=== PATIENT | male | born 1975 | race Caucasian/White ===

== ENCOUNTER → 2021-09-11 | Outpatient (CLI) | payer BC, SELFPAY ==
[2021-09-11 17:51] LABS: Absolute Neutrophil Count 4.5 X10^3/uL (2.0-7.7); Basophil# 0.07 X10^3/uL; Basophil% 0.9 % (0-1); Eosinophil# 0.17 X10^3/uL; Eosinophils% 2.3 % (0-5); Hematocrit 49.1 % (40-54); Hemoglobin 16.8 g/dL (13.0-16.5); Mean Corp Hgb Conc 34.2 g/dL (32-36); Mean Corpuscular Hgb 30.3 pg (27.0-32.0); Mean Corpuscular Volume 88.6 fL (80-94); Mean Platelet Vol. 9.6 fl (6.2-12.0); Monocyte# 0.69 X10^3/uL; Monocyte% 9.3 % (0-10); NRBC Flagged by Analyzer 0 % (0-5); Neutrophil # 4.46 X10^3/uL (2.7-7.7); Neutrophil % 60.4 % (47-70); Platelet Count 241 K/mm3 (150-450); RBC Distribution Width CV 12.3 % (11.6-14.6); RBC Distribution Width SD 39.8 fl (35.1-43.9); Red Blood Count 5.54 M/mm3 (4.6-6.2); White Blood Count 7.4 K/mm3 (4.4-11.0)
[2021-09-11 18:13] LABS: Vitamin B12 505 pg/mL (211-911); Vitamin D,25 Hydroxy 39.7 ng/mL
[2021-09-11 18:14] LABS: AST(SGOT) 21 U/L (15-37); Alanine Aminotransfer ALT/SGPT 33 U/L (16-61); Albumin, Serum 3.7 g/dL (3.2-5.0); Alkaline Phosphatase 65 U/L (45-117); Anion Gap 8 (5-15); BUN 18 mg/dL (7-18); BUN/Creat Ratio 14.8 RATIO (10-20); Calcium,Total 9.2 mg/dL (8.5-10.1); Chloride 104 mmol/L (98-107); Cholesterol 191 mg/dL (200); Creatinine, Serum 1.22 mg/dL (0.70-1.30); EST Glomerular Filtration Rate 68 mL/min (>60); Est Glom Filt Rate - Afr Amer 82 mL/min (>60); Estradiol 24.8 pg/mL; Globulin 3.7 g/dL (2.2-4.2); Glucose 88 mg/dL (74-106); High Density Lipoprotein 62 mg/dL; Protein, Total 7.4 g/dL (6.4-8.2); Sodium Level 138 mmol/L (136-145); Triglycerides 153 mg/dL; Very Low Density Lipoprotein 31 mg/dL (5-40)
[2021-09-11 18:20] LABS: Hemoglobin A1c 5.2 % (3.8-5.6)
[2021-09-17 10:09] LABS: Testosterone, % Free 2.99 % (1.50-4.20); Testosterone, Free 25.92 ng/dL (5.00-21.00)
[2021-09-17 10:54] LABS: Testosterone, Total 867 ng/dL (264-916)
== END | disposition home or self-care (01) ==
DX: R53.83 Other fatigue (principal); E66.3 Overweight; R79.89 Other specified abnormal findings of blood chemistry; Z79.890 Hormone replacement therapy; R68.82 Decreased libido; R68.89 Other general symptoms and signs
CPT/HCPCS: 80053; 80061; 82306; 82607; 82627; 82670; 83036; 84402; 84403; 85025; 82626

== ENCOUNTER → 2023-04-14 | Outpatient (CLI) | payer BC, SELFPAY ==
[2023-04-14 10:12] LABS: Absolute Lymphocyte Count 1.67 X10^3/uL (0.83-4.51); Absolute Neutrophil Count 3.6 X10^3/uL (2.0-7.7); Basophil# 0.07 X10^3/uL; Basophil% 1.2 % (0-1); Eosinophil# 0.16 X10^3/uL; Eosinophils% 2.6 % (0-5); Hematocrit 49.9 % (40-54); Hemoglobin 16.6 g/dL (13.0-16.5); Lymphocyte # 1.67 X10^3/ul (0.83-4.51); Lymphocyte % 27.6 % (19-41); Mean Corp Hgb Conc 33.3 g/dL (32-36); Mean Corpuscular Hgb 29.6 pg (27.0-32.0); Mean Corpuscular Volume 89.1 fL (80-94); Mean Platelet Vol. 9.8 fl (6.2-12.0); Monocyte# 0.55 X10^3/uL; Monocyte% 9.1 % (0-10); NRBC Flagged by Analyzer 0 % (0-5); Neutrophil # 3.58 X10^3/uL (2.7-7.7); Neutrophil % 59.3 % (47-70); Platelet Count 200 K/mm3 (150-450); RBC Distribution Width CV 11.9 % (11.6-14.6); RBC Distribution Width SD 39.2 fl (35.1-43.9)
[2023-04-14 10:31] LABS: ALB/GLOB Ratio 1.1 RATIO (0.9-2.4); AST(SGOT) 29 U/L (15-37); Alanine Aminotransfer ALT/SGPT 37 U/L (16-61); Albumin, Serum 3.7 g/dL (3.2-5.0); Alkaline Phosphatase 63 U/L (45-117); Anion Gap 1 (5-15); BUN 14 mg/dL (7-18); BUN/Creat Ratio 11.1 RATIO (10-20); Calcium,Total 9.2 mg/dL (8.5-10.1); Chloride 105 mmol/L (98-107); Cholesterol 192 mg/dL (200); Creatinine, Serum 1.26 mg/dL (0.70-1.30); EST Glomerular Filtration Rate 65 mL/min (>60); Est Glom Filt Rate - Afr Amer 79 mL/min (>60); Estradiol 50.5 pg/mL; Globulin 3.5 g/dL (2.2-4.2); Glucose 102 mg/dL (74-106); High Density Lipoprotein 62 mg/dL; PSA,Total - Annual Screen 1.99 ng/mL (0.00-4.00); Potassium 4.2 mmol/L (3.5-5.1); Protein, Total 7.2 g/dL (6.4-8.2); Sodium Level 136 mmol/L (136-145); Triglycerides 83 mg/dL; Very Low Density Lipoprotein 17 mg/dL (5-40)
[2023-04-14 10:33] LABS: Vitamin B12 310 pg/mL (211-911); Vitamin D,25 Hydroxy 23.6 ng/mL
[2023-04-14 10:40] LABS: Hemoglobin A1c 5.3 % (3.8-5.6)
[2023-04-21 11:09] LABS: Testosterone, % Free 1.79 % (1.50-4.20); Testosterone, Free 10.83 ng/dL (5.00-21.00); Testosterone, Total 605 ng/dL (264-916)
== END | disposition home or self-care (01) ==
LOC: MTLAB 08:31
DX: R53.83 Other fatigue (principal); R68.82 Decreased libido; R41.3 Other amnesia; M25.50 Pain in unspecified joint; R63.5 Abnormal weight gain; N52.9 Male erectile dysfunction, unspecified; R68.89 Other general symptoms and signs; R79.89 Other specified abnormal findings of blood chemistry; Z12.5 Encounter for screening for malignant neoplasm of prostate
CPT/HCPCS: 36415; 80053; 80061; 82306; 82607; 82627; 82670; 83036; 84153; 84402; 84403; 85025; 82626; G0103